=== PATIENT | male | born 1980 | race Caucasian/White ===

== ENCOUNTER 2021-07-27 19:30 | Emergency (ER) | payer OTHER ==
[2021-07-27] MEDS ORDERED: ELIMITE60 GM TP (20:01)
[2021-07-27 20:22] LABS: HEMOGLOBIN 12.3 gm/dl (14.0-17.5); RED BLOOD COUNT 4.23 M/UL (4.20-5.50); WHITE BLOOD COUNT 11.2 K/UL (4.5-11.0)
[2021-07-27 21:07] LABS: BUN/CREATININE RATIO 29 (0-10)
[2021-07-27] MEDS ORDERED: BACTRIM DS TAB1 EACH PO (21:35)
== END 2021-07-27 21:55 | disposition home or self-care (01) ==
LOC: ER1 19:30
PROVIDERS: Nurse Practitioner
DX: B86 Scabies (principal); M79.641 Pain in right hand; M79.89 Other specified soft tissue disorders
CPT/HCPCS: 73130; 80053; 83605; 85025; 87040; 99283